=== PATIENT | female | born 1955 | race Caucasian/White ===

== ENCOUNTER 2018-03-31 09:33 | Emergency (ER) | payer BC ==
--- NOTE | 2018-03-31 09:59 | EDPHY ---
H & P Stated Complaint: constipation Time Seen by Provider: 03/31/18 09:44 HPI/ROS: CHIEF COMPLAINT: Constipation HISTORY OF PRESENT ILLNESS: 63-year-old female had right hip arthroplasty 1 week ago by orthopedic surgeon in [place], has been consuming opiate analgesia which has been alleviating her symptoms and, in states that her hip is feeling well however she has been unable to pass significant bowel movement. This morning she felt a large piece of stool at her anus that she was unable to defecate. No abdominal pain. No fever or chills. No hip pain. No vomiting. PRIMARY CARE PROVIDER: REVIEW OF SYSTEMS: 10 systems reviewed and negative with the exception of the elements mentioned in the history of present illness PAST MEDICAL & SURGICAL HISTORY: 1 week right hip arthroplasty SOCIAL HISTORY: Nonsmoker PHYSICAL EXAM (Prior to examination, patient consented to physical exam, hands were washed and my usual and customary physical exam procedures followed) 1) GENERAL: Well-developed, well-nourished, alert and oriented. Appears nontoxic. Appears uncomfortable 2) HEAD: Normocephalic, atraumatic 3) HEENT: Pupils equal, round, reactive to light bilaterally. Sclera anicteric. 4) NECK: Full range of motion, no meningeal signs. 5) LUNGS: Clear auscultation bilaterally, no wheezes, no rhonchi, no retractions. 6) HEART: Regular rate and rhythm, no murmur, no heave, no gallop. 7) ABDOMEN: No distension. No guarding, no rebound, no focal tenderness, negative McBurney's, negative Hsu's, negative Rovsing's, negative peritoneal sign, 8) MUSCULOSKELETAL: Moving all extremities, no focal areas of tenderness, no obvious trauma. No peripheral edema or discoloration. 9) BACK: No CVA tenderness, no midline vertebral tenderness, no fluctuance, no step-off, no obvious trauma, no visual or palpable abnormality. 10) SKIN: No rash, no petechiae. 11) RECTAL (with female nurse Mary at bedside): Large amount of stool in the rectal vault. This is manually disimpacted by myself please see procedure note.. DIFFERENTIAL DIAGNOSIS: In no particular include but limited to opiate induced constipation, bowel obstruction, functional constipation - Personal History Current Tetanus/Diphtheria Vaccine: Yes Current Tetanus Diphtheria and Acellular Pertussis (TDAP): Yes - Medical/Surgical History Hx Asthma: No Hx Chronic Respiratory Disease: No Hx Diabetes: No Hx Cardiac Disease: No Hx Renal Disease: No Hx Cirrhosis: No Hx Alcoholism: No Hx HIV/AIDS: No Hx Splenectomy or Spleen Trauma: No Other PMH: R hip replacement, R knee repair, breast reduction, cataract surgery , face lift, - Social History Smoking Status: Never smoked Constitutional: Initial Vital Signs Temperature (C) 36.6 C 03/31/18 09:39 Heart Rate 137 H 03/31/18 09:39 Respiratory Rate 16 03/31/18 09:39 Blood Pressure 127/116 H 03/31/18 09:39 O2 Sat (%) 97 03/31/18 09:39 O2 Delivery Mode Room Air Allergies/Adverse Reactions: Penicillins Allergy (Unknown, Verified 03/31/18 09:37) Unknown midazolam [From Versed] Allergy (Verified 03/31/18 09:38) wheat Allergy (Verified 03/31/18 09:38) Home Medications: Medication Instructions Recorded Estrogen Patch 1 TOP .3X/WK 01/04/11 Progesterone 1 PO DAILY 01/04/11 Meloxicam 03/31/18 Gamaliel 5/325 (*) 03/31/18 Peg 3350/Na Sulf,Bicarb,Cl/KCl 1,000 ml PO ONCE #4000 ml 03/31/18 [Golytely (RX)] Senna 03/31/18 Testosterone 03/31/18 Medical Decision Making Procedures: Procedure: Manual disimpaction of feces Indication: Constipation, stool in rectal vault Patient consented procedure, with female nurse Mary at bedside I manually disimpacted the patient using my usual and customary technique removing an approximately baseball size piece of stool from the rectal vault. Patient tolerated this procedure well. This will be followed by soapsuds enema. ED Course/Re-evaluation: I saw this patient independently based on established practice protocols. Care of patient under supervision of secondary supervising physician Dr Rehan Issa with whom I discussed case. Patient was initially manually disimpacted by myself and a later point requested that I manually disimpact her again which I did. At 11:50 a.m. she requested before discharge that I check her 1 further time. I rechecked the patient again and she had another stool ball in the rectal vault which I removed. She tolerated this well. I have instructed her on how to manually disimpact herself, discharged home with GoLYTELY, enema. I do not think that imaging studies indicated at this time. She feels comfortable being discharged. Departure - Departure Disposition: Home, Routine, Self-Care Clinical Impression: Opiate induced constipation Condition: Good Instructions: Constipation (ED) Additional Instructions: I have instructed do on how to manually disimpact your self. Use gloves and use lubricant. Referrals: SALTY PIERSON [Primary Care Provider] - 1-2 days without fail Prescriptions: Peg 3350/Na Sulf,Bicarb,Cl/KCl [Golytely (RX)] 1,000 ml PO ONCE #4000 ml
[2018-03-31 12:05] VITALS: BP 128/72
== END 2018-03-31 12:10 | disposition home or self-care (01) ==
DX: K59.03 Drug induced constipation (principal); T40.2X5A Adverse effect of other opioids, initial encounter; Z96.641 Presence of right artificial hip joint